=== PATIENT | female | born 1995 | race Caucasian/White ===

== ENCOUNTER 2018-10-01 20:41 | Emergency (ER) | payer OTHER ==
[2018-10-01] MEDS: FAMOTIDINE 20 MG TAB PO (22:53)
[2018-10-01] MEDS: IBUPROFEN 200 MG TAB PO (22:53)
[2018-10-01 22:57] LABS: ADD MAN DIFF? NO
[2018-10-01 23:03] LABS: WHITE BLOOD COUNT 8.9 10^3/ul (4.8-10.8)
[2018-10-01 23:03] LABS: BASOPHIL # 0.1 10^3/ul (0.0-0.1); BASOPHILS % 0.8 % (0.0-2.0); EOSINOPHILS # 0.3 10^3/ul (0.0-0.5); EOSINOPHILS % 3.8 % (0.0-7.0); HEMATOCRIT 40.9 % (37.0-47.0); HEMOGLOBIN 13.4 g/dl (12.0-16.0); LYMPHOCYTES # 3.1 10^3/ul (0.8-2.9); LYMPHOCYTES % 34.9 % (15.0-51.0); MEAN CORPUSCULAR HEMOGLOBIN 28.9 pg (29.0-33.0); MEAN CORPUSCULAR HGB CONC 32.8 g/dl (32.0-37.0); MEAN CORPUSCULAR VOLUME 88.1 fl (82.0-101.0); MEAN PLATELET VOLUME 9.2 fl (7.4-10.4); MONOCYTE # 0.6 10^3/ul (0.3-0.9); MONOCYTES % 6.4 % (0.0-11.0); NEUTROPHIL # 4.8 10^3/ul (1.6-7.5); NEUTROPHILS % 53.8 % (39.0-77.0); PLATELET COUNT 334 10^3/UL (140-415); RED BLOOD COUNT 4.64 10^6/ul (4.20-5.40)
[2018-10-01 23:08] LABS: ADD UMIC YES; UR ASCORBIC ACID 20 mg/dL (NEGATIVE); UR BILIRUBIN (Dip) NEGATIVE (NEGATIVE); UR BLOOD (Dip) 3+ mg/dL (NEGATIVE); UR CLARITY SLIGHTLY CLOUDY (CLEAR); UR COLOR YELLOW (YELLOW); UR GLUCOSE (Dip) NEGATIVE (NEGATIVE); UR KETONES (Dip) NEGATIVE (NEGATIVE); UR LEUKOCYTE ESTERASE (Dip) NEGATIVE Leu/ul (NEGATIVE); UR MUCUS FEW /HPF (NONE SEEN); UR NITRITE (Dip) NEGATIVE (NEGATIVE); UR RBC 4 /HPF (0-5); UR SPECIFIC GRAVITY (Dip) 1.017 (1.003-1.030); UR SQUAMOUS EPITHELIAL CELL FEW /HPF (FEW); UR TOTAL PROTEIN (Dip) NEGATIVE (NEGATIVE); UR UROBILINOGEN (Dip) NEGATIVE (NEGATIVE); UR WBC 2 /HPF (0-5)
[2018-10-01 23:22] LABS: ALANINE AMINOTRANSFERASE 12 IU/L (13-69); ALBUMIN 4.7 g/dl (3.3-4.9); ALBUMIN/GLOBULIN RATIO 1.34; ALKALINE PHOSPHATASE 99 IU/L (42-121); ANION GAP 10 (5-13); ASPARTATE AMINO TRANSFERASE 22 IU/L (15-46); BILIRUBIN,INDIRECT 0.5 mg/dl (0-1.1); BILIRUBIN,TOTAL 0.5 mg/dl (0.2-1.3); BLOOD UREA NITROGEN 19 mg/dl (7-20); CALCIUM 10.3 mg/dl (8.4-10.2); CARBON DIOXIDE 28 mmol/L (21-31); CHLORIDE 103 mmol/L (97-110); CREATININE 0.54 mg/dl (0.44-1.00); Estimated GFR > 60 mL/min (>60); GLUCOSE 95 mg/dl (70-220); LIPASE 92 U/L (23-300); POTASSIUM 3.9 mmol/L (3.5-5.1); SODIUM 141 mmol/L (135-144); TOTAL PROTEIN 8.2 g/dl (6.1-8.1)
== END 2018-10-02 00:02 | disposition home or self-care (01) ==
LOC: FTE 10-02 00:02
DX: R10.13 Epigastric pain (principal); R30.0 Dysuria; R31.9 Hematuria, unspecified
CPT/HCPCS: 36415; 76705; 80053; 81001; 81025; 83690; 85025; 87086; 99284-25